=== PATIENT | male | born 1935 | race Caucasian/White ===

== ENCOUNTER 2019-05-16 00:45 | Emergency (ER) | payer MEDICARE, OTHER ==
[2019-05-16] MEDS ORDERED: Albuterol/Ipratropium 3.0-0.5 MG/3 ML Neb Soln NEB ONE (01:24)
--- NOTE | 2019-05-16 01:25 | EDM.PDOC ---
ED HPI GENERAL MEDICAL PROBLEM - General Chief Complaint: Respiratory Problem Stated Complaint: sob Time Seen by Provider: 05/16/19 00:52 Source of Information: Reports: Patient, Other ([facility] staff) History Limitations: Reports: No Limitations - History of Present Illness INITIAL COMMENTS - FREE TEXT/NARRATIVE: Patient comes to ER complaining of SOB for several days. Noted significant increase in SOB with activity. Reports single episode of emesis yesterday. No chest pain. No fevers/chills/obvious infectious symptoms. No new cough. Has had intermittent wheezing. Denies acute new pain such as headache or abdominal pain. Has not had similar sensation that he can recall. - Related Data Allergies Allergy/AdvReac Type Severity Reaction Status Date / Time oxybutynin Allergy Cannot Verified 05/16/19 01:18 Remember Past Medical History HEENT History: Reports: Cataract, Impaired Vision Cardiovascular History: Reports: Afib, Bypass, CAD, Heart Failure, High Cholesterol, Hypertension, Pacemaker, Stents Respiratory History: Reports: COPD Gastrointestinal History: Reports: Chronic Constipation, GERD, Other (See Below ) (diaphragmatic hernia) Genitourinary History: Reports: BPH, Chronic Renal Insuffiency Musculoskeletal History: Reports: Back Pain, Chronic, Osteoarthritis Neurological History: Reports: Neuropathy, Peripheral Psychiatric History: Reports: Other (See Below) (insomnia) Endocrine/Metabolic History: Reports: Hypothyroidism ED ROS GENERAL - Review of Systems Review Of Systems: See Below Constitutional: Reports: Weakness (chronic). Denies: Fever, Chills, Night Sweats, Diaphoresis, Decreased Appetite HEENT: Reports: Rhinitis Respiratory: Reports: Shortness of Breath, Wheezing, Cough (mild). Denies: Pleuritic Chest Pain, Sputum, Hemoptysis Cardiovascular: Reports: Blood Pressure Problem (elevated earlier tonight per [facility]), Dyspnea on Exertion. Denies: Chest Pain, Edema, Lightheadedness, Palpitations, Syncope GI/Abdominal: Reports: Nausea, Vomiting (yesterday). Denies: Constipation, Diarrhea, Decreased Appetite, Distension : Reports: No Symptoms (no acute changes from baseline) Musculoskeletal: Reports: No Symptoms (No acute changes from baseline. Has scattered chronic aches/pains) Skin: Denies: Cyanosis Neurological: Reports: Difficulty Walking (chronic), Weakness (chronic). Denies : Confusion, Dizziness, Headache Psychiatric: Reports: No Symptoms ED EXAM, GENERAL - Physical Exam Exam: See Below Exam Limited By: No Limitations General Appearance: Alert, WD/WN, No Apparent Distress Eye Exam: Bilateral Eye: EOMI Nose: No: Nasal Deformity, Nasal Swelling, Nasal Drainage Throat/Mouth: Normal Lips, Normal Voice, No Airway Compromise Head: Atraumatic, Normocephalic Neck: Supple, Non-Tender Respiratory/Chest: No Respiratory Distress, Normal Breath Sounds, No Accessory Muscle Use, Chest Non-Tender. No: Crackles, Rales, Rhonchi, Wheezing, Stridor Cardiovascular: Regular Rate, Rhythm, No Edema, No Murmur GI/Abdominal: Soft, Non-Tender, No Distention (Male) Exam: Deferred Rectal (Males) Exam: Deferred Back Exam: No: Muscle Spasm, Paraspinal Tenderness, Vertebral Tenderness Extremities: Non-Tender, No Pedal Edema, Normal Capillary Refill Neurological: Alert, Oriented, Normal Cognition Psychiatric: Normal Affect, Normal Mood Skin Exam: Warm, Dry, Normal Color EKG INTERPRETATION EKG Date: 05/16/19 Time: 00:57 Rhythm: Other (wide complex rhythm/afib) Rate (Beats/Min): 67 [place]: LAD-Left [place] Deviation P-Wave: Absent QRS: Other (intraventricular block) ST-T: Other (intraventricular block makes assessment for acute ST elevation difficult) QT: Normal Comparison: NA - No Prior EKG EKG Interpretation Comments: Patient has pacemaker implanted. Course - Vital Signs Last Recorded V/S: Last Vital Signs Temp 36.1 C 05/16/19 00:45 Pulse 69 05/16/19 00:45 Resp 20 05/16/19 00:45 BP 173/59 H 05/16/19 00:45 Pulse Ox 95 05/16/19 00:45 - Orders/Labs/Meds Orders: Active Orders 24 hr Category Date Time Status EKG Documentation Completion [RC] ASDIRECTED Care 05/16/19 00:53 Ordered Chest 2V [CR] Stat Exams 05/16/19 00:52 Ordered CBC WITH AUTO DIFF [HEME] Stat Lab 05/16/19 00:52 Ordered COMPREHENSIVE METABOLIC PN,CMP [CHEM] Stat Lab 05/16/19 00:52 Ordered D-DIMER QUANTITATIVE [COAG] Stat Lab 05/16/19 00:52 Ordered MG [MAGNESIUM] [CHEM] Stat Lab 05/16/19 00:53 Ordered PRO B-TYPE NATRIUR PEPT,BNPPRO [CHEM] Stat Lab 05/16/19 00:53 Ordered TROPONIN I [CHEM] Stat Lab 05/16/19 00:52 Ordered EKG 12 Lead [EK] Stat Ther 05/16/19 00:53 Ordered - Radiology Interpretation Free Text/Narrative:: Chest xray showed pacemaker, enlarged heart size, mild CHF. No obvious focal pneumonia. - Re-Assessments/Exams Free Text/Narrative Re-Assessment/Exam: 05/16/19 02:08 Patient given neb, felt improved. Normal WBC. Hgb and platelets noted to be decreased BUN/Cr increased. Patient has history of chronic renal disease. DDImer normal. INR subtherapeutic at 1.8 Troponin elevated 0.187 ProBNP elevated 1520 Mag low at 1.5 Suspect troponin may be elevated due to patient's chronic CHF, however cannot rule out recent silent NM that may be contributing to the elevation along with the SOB. Patient does have COPD. He did feel some improvement after neb treatment. Is on handheld inhaler at home. SOB complaint may be related to exacerbation of chronic COPD and/or CHF. Magnesium replacement initiated. Call placed to [place] and discussed patient with . He did not wish to admit the patient to the [facility] and preferred patient to be where Cardiology could evaluate. Cleared to send patient to [place]. Patient then discussed with , hospitalist at [facility]. He accepted the patient for transfer. Departure - Departure Time of Disposition: 02:17 Disposition: DC/Tfer to Acute Hospital 02 Condition: Good Clinical Impression: Shortness of breath, Elevated troponin, Hypomagnesemia - Discharge Information *PRESCRIPTION DRUG MONITORING PROGRAM REVIEWED*: Not Applicable *COPY OF PRESCRIPTION DRUG MONITORING REPORT IN PATIENT JANAK: Not Applicable - My Orders Last 24 Hours: My Active Orders 05/16/19 00:52 Chest 2V [CR] Stat CBC WITH AUTO DIFF [HEME] Stat COMPREHENSIVE METABOLIC PN,CMP [CHEM] Stat D-DIMER QUANTITATIVE [COAG] Stat TROPONIN I [CHEM] Stat 05/16/19 00:53 EKG Documentation Completion [RC] ASDIRECTED MG [MAGNESIUM] [CHEM] Stat PRO B-TYPE NATRIUR PEPT,BNPPRO [CHEM] Stat EKG 12 Lead [EK] Stat - Assessment/Plan Last 24 Hours: My Active Orders 05/16/19 00:52 Chest 2V [CR] Stat CBC WITH AUTO DIFF [HEME] Stat COMPREHENSIVE METABOLIC PN,CMP [CHEM] Stat D-DIMER QUANTITATIVE [COAG] Stat TROPONIN I [CHEM] Stat 05/16/19 00:53 EKG Documentation Completion [RC] ASDIRECTED MG [MAGNESIUM] [CHEM] Stat PRO B-TYPE NATRIUR PEPT,BNPPRO [CHEM] Stat EKG 12 Lead [EK] Stat
[2019-05-16] MEDS ORDERED: Sodium Chloride 0.9% 10 ML Syringe FLUSH PRN (02:06)
[2019-05-16] MEDS ORDERED: Aspirin 81 MG Tab.Chew PO ONE (02:07)
== END 2019-05-16 02:50 ==
LOC: LL.ED 00:45
DX: R06.02 Shortness of breath (principal); E83.42 Hypomagnesemia; R79.89 Other specified abnormal findings of blood chemistry; I13.0 Hypertensive heart and chronic kidney disease with heart failure and stage 1 through stage 4 chronic kidney disease, or unspecified chronic kidney disease; N18.9 Chronic kidney disease, unspecified; I50.9 Heart failure, unspecified; E78.00 Pure hypercholesterolemia, unspecified; I48.91 Unspecified atrial fibrillation; J44.9 Chronic obstructive pulmonary disease, unspecified; I25.10 Atherosclerotic heart disease of native coronary artery without angina pectoris; E03.9 Hypothyroidism, unspecified; Z88.8 Allergy status to other drugs, medicaments and biological substances
CPT/HCPCS: 36415; 71046; 80053; 83735; 83880; 84484; 85025; 85379; 85610; 93005; 93010; 99284; 99285-25; A9270-GY; J3475; J7620-GY

== ENCOUNTER 2019-11-16 09:26 | Day surgery (SDC) | payer MEDICARE, OTHER ==
[~2019-11-16 09:26] MED LIST: Propofol 200 MG/20 ML SDV ONE
[2019-11-16] MEDS ORDERED: Sodium Chloride 0.9% 10 ML Syringe FLUSH PRN (09:30)
[2019-11-16] MEDS ORDERED: Lactated Ringers 1,000 ML IV SCH (09:30)
[2019-11-16] MEDS ORDERED: Propofol 200 MG/20 ML SDV ONE (10:15)
--- NOTE | 2019-11-16 10:39 | PCM.PN ---
- General Info Date of Service: 11/16/19 - Review of Systems Systems Review Comment:: 84-year-old male with recent history of rectal bleeding comes today for colonoscopy. He is medically stable to proceed today. His recent history and physical is reviewed and no significant changes are noted. I have reviewed the proposed colonoscopy with the patient. His questions are answered and he agrees to proceed accepting risks. - Patient Data Vitals - Most Recent: Last Vital Signs Temp 97.6 F 11/16/19 10:00 Pulse 65 11/16/19 10:00 Resp 20 11/16/19 10:00 BP 122/60 11/16/19 10:00 Pulse Ox 100 11/16/19 10:00 Weight - Most Recent: 95.254 kg Med Orders - Current: Current Medications Lactated Ringer's (Ringers, Lactated) 1,000 mls @ 125 mls/hr IV ASDIRECTED WARREN Last Admin: 11/16/19 10:20 Dose: 125 mls/hr Sodium Chloride (Saline Flush) 10 ml FLUSH ASDIRECTED PRN PRN Reason: Keep Vein Open Discontinued Medications Propofol (Diprivan 20 Ml) Confirm Administered Dose 200 mg .ROUTE .STK-MED ONE Stop: 11/16/19 08:36 Sepsis Event Note - Focused Exam Vital Signs: Vital Signs Temp Pulse Resp BP Pulse Ox 11/16/19 10:00 97.6 F 65 20 122/60 100 Date Exam was Performed: 11/16/19 Time Exam was Performed: 10:38 - Problem List Review Problem List Initiated/Reviewed/Updated: Yes - My Orders Last 24 Hours: My Active Orders 11/16/19 09:30 Patient Status [ADT] Routine Peripheral IV Care [RC] . DIRECTED Verify Patient Consent Obtain [RC] ASDIRECTED Lactated Ringers [Ringers, Lactated] 1,000 ml IV ASDIRECTED Sodium Chloride 0.9% [Saline Flush] 10 ml FLUSH ASDIRECTED PRN Peripheral IV Insertion Adult [OM.PC] Routine - Assessment Assessment:: rectal bleeding - Plan Plan:: colonoscopy
--- NOTE | 2019-11-16 11:24 | PCM.OPNOTE ---
- General Post-Op/Procedure Note Date of Surgery/Procedure: 11/16/19 Operative Procedure(s): Colonoscopy Findings: small internal hemorrhoids Moderate left colon diverticulosis Pre Op Diagnosis: rectal bleeding Post-Op Diagnosis: hemorrhoids. Left colon diverticulosis Anesthesia Technique: MAC Primary Surgeon: Michael Castano Pathology: none EBL in mLs: 0 Complications: None Condition: Good
--- NOTE | 2019-11-16 12:12 | OR ---
Date of Procedure: 11/16/2019 PREOPERATIVE DIAGNOSIS: Rectal bleeding. POSTOPERATIVE DIAGNOSIS: Internal hemorrhoids and left colon diverticulosis. OPERATIONS PERFORMED: Colonoscopy. INDICATIONS FOR SURGERY: This is an 84-year-old male who has been having some unexplained rectal bleeding recently. He has never had a prior colonoscopy and comes for diagnostic colonoscopy today. FINDINGS: No active bleeding is seen today. The patient does have a small-to medium-sized internal hemorrhoids, but these do not appear to be bleeding or otherwise, complicated at this time. The patient also has a moderate degree of diverticulosis in the descending and sigmoid region. The diverticulosis does not appear acutely inflamed, or otherwise, complicated. The remainder of the colon is normal. DESCRIPTION OF PROCEDURE: The patient was taken to the operating room. He was given intravenous sedation, and with him in the left lateral decubitus position, digital rectal exam was performed. No rectal masses were noted. The Olympus colonoscope was inserted into the rectum. Retroflexed examination of the rectal canal was performed. The scope was then carefully advanced under direct visualization through the entire length of the colon until the cecum was reached. This was somewhat difficult due to tortuosity of the colon, but eventually with hand pressure, the cecum is able to be viewed. The ileocecal valve was identified. The scope was then slowly withdrawn sequentially re- examining the colonic segments until the entire colon and rectum had been fully examined. The scope was removed and the patient was taken from the operating room in satisfactory condition. ESTIMATED BLOOD LOSS: 0. COMPLICATIONS: None. PROGNOSIS: Good. ELY Castano MD /[id number]
== END 2019-11-16 12:45 | disposition home or self-care (01) ==
LOC: LL.SDS 09:26
PROVIDERS: ATTEND Surgery
DX: K57.31 Diverticulosis of large intestine without perforation or abscess with bleeding (principal); K64.8 Other hemorrhoids; K63.89 Other specified diseases of intestine; J44.9 Chronic obstructive pulmonary disease, unspecified; I13.0 Hypertensive heart and chronic kidney disease with heart failure and stage 1 through stage 4 chronic kidney disease, or unspecified chronic kidney disease; N18.3 Chronic kidney disease, stage 3 (moderate); I50.9 Heart failure, unspecified; R94.31 Abnormal electrocardiogram [ECG] [EKG]; Z87.19 Personal history of other diseases of the digestive system
CPT/HCPCS: 00812; 45378; J2704; J7120

== ENCOUNTER 2022-04-15 18:57 | Emergency (ER) | payer MEDICARE, OTHER ==
[2022-04-15 21:48] LABS: ANION GAP 12.3 meq/L (7-15)
== END 2022-04-15 22:24 | disposition home or self-care (01) ==
LOC: LL.ED 18:57
DX: S61.411A Laceration without foreign body of right hand, initial encounter (principal); S00.03XA Contusion of scalp, initial encounter; I48.91 Unspecified atrial fibrillation; I13.0 Hypertensive heart and chronic kidney disease with heart failure and stage 1 through stage 4 chronic kidney disease, or unspecified chronic kidney disease; N18.9 Chronic kidney disease, unspecified; I50.9 Heart failure, unspecified; E78.00 Pure hypercholesterolemia, unspecified; J44.9 Chronic obstructive pulmonary disease, unspecified; K21.9 Gastro-esophageal reflux disease without esophagitis; E66.9 Obesity, unspecified; Z68.32 Body mass index [BMI] 32.0-32.9, adult; Z95.1 Presence of aortocoronary bypass graft; W01.0XXA Fall on same level from slipping, tripping and stumbling without subsequent striking against object, initial encounter; Y92.002 Bathroom of unspecified non-institutional (private) residence as the place of occurrence of the external cause
CPT/HCPCS: 36415; 70450; 80053; 81003; 85025; 85610; 99283; 99284

== ENCOUNTER 2022-05-04 20:02 | Emergency (ER) | payer MEDICARE, OTHER ==
[2022-05-04] MEDS ORDERED: Sodium Chloride 0.9% 10 ML Syringe FLUSH PRN (20:24)
[2022-05-04] MEDS ORDERED: Morphine 4 MG/ML Syringe IVPUSH PRN (20:25)
[2022-05-04 21:09] LABS: ANION GAP 7.8 meq/L (7-15); CHLORIDE,CL 104 mmol/L (98-107); SODIUM,NA 140 mmol/L (136-145)
[2022-05-04 21:15] LABS: ESTIMATED GFR 41 mL/min (>=60)
[2022-05-04] MEDS ORDERED: Lidocaine 4% 1 each Patch TOP PRN (21:16)
[2022-05-04] MEDS ORDERED: Calcium Gluconate 10% 1 GM/10 ML SDV IVPUSH ONE (21:46)
== END 2022-05-04 22:30 | disposition home health service (06) ==
LOC: LL.ED 20:02
DX: S70.02XA Contusion of left hip, initial encounter (principal); I48.91 Unspecified atrial fibrillation; E78.00 Pure hypercholesterolemia, unspecified; I11.0 Hypertensive heart disease with heart failure; I50.9 Heart failure, unspecified; J44.9 Chronic obstructive pulmonary disease, unspecified; K21.9 Gastro-esophageal reflux disease without esophagitis; Z88.8 Allergy status to other drugs, medicaments and biological substances; Z79.899 Other long term (current) drug therapy; Z20.822 Contact with and (suspected) exposure to COVID-19; W19.XXXA Unspecified fall, initial encounter
CPT/HCPCS: 36415; 80053; 85025; 96374; 96375; 99283-25; 99284; J0610; J2270; U0002

== ENCOUNTER 2023-02-18 16:12 | Emergency (ER) | payer MEDICARE, MEDICAID ==
[2023-02-18 16:52] LABS: BASOPHILS ABSOLUTE AUTO 0.03 K/uL (0.00-0.20); BASOPHILS PERCENT AUTO 0.5 % (0.0-2.0); EOSINOPHILS ABSOLUTE AUTO 0.19 K/uL (0.00-0.50); EOSINOPHILS PERCENT AUTO 3.1 % (0.0-5.0); HEMATOCRIT 42.9 % (39.0-49.0); HEMOGLOBIN 13.7 g/dL (13.1-16.8); LYMPHOCYTES ABSOLUTE AUTO 1.28 K/uL (0.50-3.50); LYMPHOCYTES PERCENT AUTO 20.7 % (10.0-50.0); MEAN CORPUSCULAR HGB CONC 31.9 g/dL (31.7-36.0); MEAN CORPUSCULAR VOLUME 90.7 fL (84.0-98.0); MONOCYTES ABSOLUTE AUTO 0.78 K/uL (0.00-1.00); MONOCYTES PERCENT AUTO 12.6 % (2.0-14.0); NEUTROPHILS ABSOLUTE AUTO 3.91 K/uL (1.40-7.00); NEUTROPHILS PERCENT AUTO 63.1 % (45.0-80.0); PLATELET COUNT,PLT 162 K/uL (150-350); RED BLOOD CELL COUNT 4.73 M/uL (4.33-5.41); RED CELL DISTRIBUTION WIDTH 14.1 % (11.2-14.1); WHITE BLOOD CELL COUNT,WBC 6.2 K/uL (4.0-10.2)
[2023-02-18] MEDS ORDERED: traMADol 50 MG Tab PO ONE (16:54)
[2023-02-18 17:00] LABS: INR 1.1
[2023-02-18 17:11] LABS: ALANINE AMINOTRANSFERASE,ALT 15 U/L (12-78); ALBUMIN 3.7 g/dL (3.4-5.0); ALKALINE PHOSPHATASE 78 IU/L (46-116); ANION GAP 10.8 meq/L (7-15); ASPARTATE AMNIOTRANSFERASE,AST 24 U/L (15-37); BILIRUBIN TOTAL 0.5 mg/dL (0.2-1.0); BLOOD UREA NITROGEN,BUN 23 mg/dL (7-18); CALCIUM 9.2 mg/dL (8.5-10.1); CARBON DIOXIDE,CO2 26.2 mmol/L (21.0-32.0); CHLORIDE,CL 104 mmol/L (98-107); CREATININE 1.66 mg/dL (0.51-1.17); ESTIMATED GFR 39 mL/min (>=60); GLUCOSE RANDOM 156 mg/dL (70-99); POTASSIUM,K 3.9 mmol/L (3.5-5.1); PROTEIN TOTAL,TP 7.3 g/dL (6.4-8.2); SODIUM,NA 141 mmol/L (136-145)
== END 2023-02-18 19:13 ==
LOC: LL.ED 16:12
DX: R10.31 Right lower quadrant pain (principal); K42.9 Umbilical hernia without obstruction or gangrene; I48.91 Unspecified atrial fibrillation; J44.9 Chronic obstructive pulmonary disease, unspecified; K21.9 Gastro-esophageal reflux disease without esophagitis; E66.9 Obesity, unspecified; Z68.30 Body mass index [BMI] 30.0-30.9, adult; Z88.8 Allergy status to other drugs, medicaments and biological substances; Z95.0 Presence of cardiac pacemaker; Z79.899 Other long term (current) drug therapy; Z87.891 Personal history of nicotine dependence
CPT/HCPCS: 36415; 80053; 85025; 85610; 99283; 99284; A9270-GY

== ENCOUNTER 2023-03-04 09:30 | Day surgery (SDC) | payer MEDICARE, MEDICAID ==
[~2023-03-04 09:30] MED LIST changes: +Lactated Ringers 1,000 ML IV SCH; +Sodium Chloride 0.9% 10 ML Syringe FLUSH PRN
== END 2023-03-04 12:19 | disposition home or self-care (01) ==
LOC: LL.SDS 09:30
PROVIDERS: ATTEND Surgery
DX: K21.00 Gastro-esophageal reflux disease with esophagitis, without bleeding (principal); K44.9 Diaphragmatic hernia without obstruction or gangrene; K22.89 Other specified disease of esophagus; F03.90 Unspecified dementia, unspecified severity, without behavioral disturbance, psychotic disturbance, mood disturbance, and anxiety; R44.3 Hallucinations, unspecified
CPT/HCPCS: 00731; 82947; 88305; J2704; J7120

== ENCOUNTER 2023-08-19 13:42 | Emergency (ER) | payer MEDICARE, MEDICAID ==
[2023-08-19] MEDS ORDERED: Sodium Chloride 0.9% 10 ML Syringe FLUSH PRN (14:25)
[2023-08-19 15:00] LABS: BASOPHILS ABSOLUTE AUTO 0.02 K/uL (0.00-0.20); BASOPHILS PERCENT AUTO 0.3 % (0.0-2.0); EOSINOPHILS ABSOLUTE AUTO 0.13 K/uL (0.00-0.50); EOSINOPHILS PERCENT AUTO 2.2 % (0.0-5.0); HEMATOCRIT 37.6 % (39.0-49.0); HEMOGLOBIN 11.3 g/dL (13.1-16.8); LYMPHOCYTES ABSOLUTE AUTO 0.88 K/uL (0.50-3.50); LYMPHOCYTES PERCENT AUTO 14.9 % (10.0-50.0); MEAN CORPUSCULAR HEMOGLOBIN 28.5 pg (28.2-33.3); MEAN CORPUSCULAR HGB CONC 30.1 g/dL (31.7-36.0); MEAN CORPUSCULAR VOLUME 94.9 fL (84.0-98.0); MONOCYTES ABSOLUTE AUTO 0.54 K/uL (0.00-1.00); MONOCYTES PERCENT AUTO 9.2 % (2.0-14.0); NEUTROPHILS ABSOLUTE AUTO 4.33 K/uL (1.40-7.00); NEUTROPHILS PERCENT AUTO 73.4 % (45.0-80.0); PLATELET COUNT,PLT 131 K/uL (150-350); RED BLOOD CELL COUNT 3.96 M/uL (4.33-5.41); RED CELL DISTRIBUTION WIDTH 15.3 % (11.2-14.1); WHITE BLOOD CELL COUNT,WBC 5.9 K/uL (4.0-10.2)
[2023-08-19 15:23] LABS: CORONAVIRUS COVID-19 NAA NEGATIVE (NEGATIVE); INFLUENZA A NAA NEGATIVE (NEGATIVE); INFLUENZA B NAA NEGATIVE (NEGATIVE); RESPIRATORY SYNCYTIAL VIR NAA NEGATIVE (NEGATIVE)
[2023-08-19 15:27] LABS: ALANINE AMINOTRANSFERASE,ALT 19 U/L (12-78); ALBUMIN 3.1 g/dL (3.4-5.0); ALKALINE PHOSPHATASE 65 IU/L (46-116); ANION GAP 7.8 meq/L (7-15); ASPARTATE AMNIOTRANSFERASE,AST 26 U/L (15-37); BILIRUBIN TOTAL 0.5 mg/dL (0.2-1.0); BLOOD UREA NITROGEN,BUN 25 mg/dL (7-18); CALCIUM 8.7 mg/dL (8.5-10.1); CARBON DIOXIDE,CO2 30.2 mmol/L (21.0-32.0); CHLORIDE,CL 105 mmol/L (98-107); CREATININE 1.76 mg/dL (0.51-1.17); ESTIMATED GFR 37 mL/min (>=60); GLUCOSE RANDOM 176 mg/dL (70-99); MAGNESIUM 2.4 mg/dL (1.8-2.4); POTASSIUM,K 4.1 mmol/L (3.5-5.1); PRO B-TYPE NATRIUR PEPT,BNPPRO 1349 pg/mL (0-125); PROTEIN TOTAL,TP 6.1 g/dL (6.4-8.2); SODIUM,NA 143 mmol/L (136-145)
== END 2023-08-19 16:45 ==
LOC: LL.ED 13:42
DX: R55 Syncope and collapse (principal); R05.9 Cough, unspecified; I11.0 Hypertensive heart disease with heart failure; I50.9 Heart failure, unspecified; K21.9 Gastro-esophageal reflux disease without esophagitis; E66.9 Obesity, unspecified; E78.00 Pure hypercholesterolemia, unspecified; Z79.899 Other long term (current) drug therapy; Z79.84 Long term (current) use of oral hypoglycemic drugs; Z88.8 Allergy status to other drugs, medicaments and biological substances; Z20.822 Contact with and (suspected) exposure to COVID-19; Z87.891 Personal history of nicotine dependence
CPT/HCPCS: 0241U; 36415; 71045; 80053; 83605; 83735; 83880; 84484; 85025; 85379; 93005; 99285; 93010; 99284

== ENCOUNTER 2024-01-13 14:54 | Emergency (ER) | payer OTHER, MEDICARE, MEDICAID | END 2024-01-13 18:05 | LOC: LL.ED 14:54 | DX: R09.A2 Foreign body sensation, throat (principal); I11.0 Hypertensive heart disease with heart failure; I50.9 Heart failure, unspecified; K21.9 Gastro-esophageal reflux disease without esophagitis; E66.9 Obesity, unspecified; Z88.8 Allergy status to other drugs, medicaments and biological substances; Z79.84 Long term (current) use of oral hypoglycemic drugs; Z79.899 Other long term (current) drug therapy; Z68.33 Body mass index [BMI] 33.0-33.9, adult | CPT/HCPCS: 70360; 71046; 99283 ==